=== PATIENT | female | born 1940 | race Caucasian/White ===

== ENCOUNTER → 2019-12-05 | Outpatient (CLI) | payer MEDICARE ==
[~2019-12-05] MED LIST: DIPH25CA61 PO; FURO20TA3 PO; GABA-826 PO; LEVO25TA2 PO; POTA20PA31 PO
== END | disposition home or self-care (01) ==
LOC: RAD 16:02
PROVIDERS: ATTEND Internal Medicine Pulmonary Disease
DX: J45.909 Unspecified asthma, uncomplicated (principal); R91.8 Other nonspecific abnormal finding of lung field; M47.814 Spondylosis without myelopathy or radiculopathy, thoracic region
CPT/HCPCS: 71250

== ENCOUNTER → 2020-09-02 | Outpatient (CLI) | payer MEDICARE | END | disposition home or self-care (01) | LOC: RAD 15:15 | PROVIDERS: ATTEND Physician Assistant Surgical | DX: M47.817 Spondylosis without myelopathy or radiculopathy, lumbosacral region (principal); M43.26 Fusion of spine, lumbar region; M48.061 Spinal stenosis, lumbar region without neurogenic claudication | CPT/HCPCS: 72110; 72148 ==